=== PATIENT | male | born 1980 | race Caucasian/White ===

== ENCOUNTER → 2016-06-03 | Outpatient (CLI) | payer BC ==
[2016-06-03 11:08] LABS: Follicle Stimulating Hormone 2.1 mIU/mL (1.6-9.7); Prolactin 21.9 ng/mL (3.7-17.9)
[2016-06-03 11:22] LABS: Prostate Specific Antigen 0.86 ng/mL (0.00-4.00)
== END | disposition home or self-care (01) ==
LOC: LABWHC1 06:59
PROVIDERS: ATTEND Internal Medicine Endocrinology, Diabetes & Metabolism
DX: E78.2 Mixed hyperlipidemia (principal); E29.1 Testicular hypofunction
CPT/HCPCS: 36415; 80061; 82533; 83001; 83002; 84146; 84153; 84270; 84402; 84403; 84439; 84443

== ENCOUNTER 2017-08-20 16:05 | Emergency (ER) | payer BC ==
[2017-08-20 16:39] VITALS: RESP 18
--- NOTE | 2017-08-20 17:08 | ED ---
General Adult HPI - General Chief complaint: Urogenital Stated complaint: hernia Time Seen by Provider: 08/20/17 16:35 Source: patient, RN notes reviewed Mode of arrival: ambulatory Limitations: no limitations - History of Present Illness Initial comments: This is a 36 her old male presents emergency Department complaining that he has a lump in his right groin which started on Thursday. 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 Patient states she's never had this before. Patient states he is mildly tender. Patient went to an urgent care the urgent care sent him here because they believe it to be a hernia. Patient denies any abdominal pain patient denies nausea vomiting diarrhea. Patient denies any dysuria hematuria urinary frequency. Patient denies any back pain. Patient denies any trauma or injury. Patient denies any redness or swelling. there is no pain swelling and redness to the scrotum - Related Data Allergies Allergy/AdvReac Type Severity Reaction Status Date / Time No Known Allergies Allergy Verified 08/20/17 16:39 Review of Systems ROS Statement: Those systems with pertinent positive or pertinent negative responses have been documented in the HPI. ROS Other: All systems not noted in ROS Statement are negative. Past Medical History Past Medical History: No Reported History History of Any Multi-Drug Resistant Organisms: None Reported Past Surgical History: No Surgical Hx Reported Past Psychological History: No Psychological Hx Reported Smoking Status: Never smoker Past Alcohol Use History: Rare Past Drug Use History: None Reported General Exam - General Exam Comments Initial Comments: GENERAL: Patient is well-developed and well-nourished. Patient is nontoxic and well- hydrated and is in mild distress. ENT: Neck is soft and supple. No significant lymphadenopathy is noted. Oropharynx is clear. Moist mucous membranes. EYES: The sclera were anicteric and conjunctiva were pink and moist. Extraocular movements were intact and pupils were equal round and reactive to light. Eyelids were unremarkable. PULMONARY: Unlabored respirations. Good breath sounds bilaterally. No audible rales rhonchi or wheezing was noted. CARDIOVASCULAR: There is a regular rate and rhythm without any murmurs gallops or rubs. ABDOMEN: Soft and nontender with normal bowel sounds. No palpable organomegaly was noted. There is no palpable pulsatile mass. SKIN: Skin is clear with no lesions or rashes and otherwise unremarkable. GENITALIA Right groin had a small mobile mass that appeared to be reducible and would come back if the patient coughed or had any increased intra-abdominal pressure. The area was slightly tender. NEUROLOGIC: Patient is alert and oriented x3. Cranial nerves II through XII are grossly intact. Motor and sensory are also intact. Normal speech, volume and content. Symmetrical smile. MUSCULOSKELETAL: Normal extremities with adequate strength and full range of motion. No lower extremity swelling or edema. No calf tenderness. LYMPHATICS: No significant lymphadenopathy is noted PSYCHIATRIC: Normal psychiatric evaluation. Limitations: no limitations Course Vital Signs 08/20/17 16:37 Temperature 98.6 F Pulse Rate 100 Respiratory 18 Rate Blood Pressure 128/75 O2 Sat by Pulse 100 Oximetry Medical Decision Making - Medical Decision Making Ultrasound showed a cyst in the right groin. I spoke with Dr. Collazo and he wanted the patient to follow-up with the surgeon. Patient is aware that if the area gets more tender swollen to come to the emergency department immediately - Lab Data Lab Results 08/20/17 Range/Units 17:20 Urine Color Light Yellow Urine Appearance Clear (Clear) Urine pH 5.0 (5.0-8.0) Ur Specific [place] 1.007 (1.001-1.035) Urine Protein Negative (Negative) Urine Glucose (UA) Negative (Negative) Urine Ketones Negative (Negative) Urine Blood Negative (Negative) Urine Nitrite Negative (Negative) Urine Bilirubin Negative (Negative) Urine Urobilinogen <2.0 (<2.0) mg/dL Ur Leukocyte Esterase Negative (Negative) Disposition Clinical Impression: Inguinal cyst Disposition: HOME SELF-CARE Condition: Good Instructions: Cyst (ED) Is patient prescribed a controlled substance at d/c from ED?: No Referrals: Heladio Rice DO [Primary Care Provider] - 1-2 days Alon Sexton MD [STAFF PHYSICIAN] - 1-2 days Time of Disposition: 18:00
[2017-08-20 17:34] LABS: Appearance,Urine Clear (Clear); Bilirubin,Urine Negative (Negative); Blood,Urine Negative (Negative); Color,Urine Light Yellow; Glucose,Urine (UA) Negative (Negative); Ketones,Urine Negative (Negative); Leukocyte Esterase,Urine Negative (Negative); Nitrite,Urine Negative (Negative); Protein,Urine Negative (Negative); Specific Gravity,Urine 1.007 (1.001-1.035); Urobilinogen,Urine <2.0 mg/dL (<2.0)
--- NOTE | 2017-08-20 17:49 | US ---
EXAMINATION TYPE: US groin RT DATE OF EXAM: 08/20/2017 COMPARISON: NONE CLINICAL HISTORY: Pain. Rt groin lump FINDINGS: There is a subcutaneous well-marginated anechoic 4.7 x 3.3 x 1.5 cm lesion corresponding to the palpable right groin lump. This lesion demonstrates posterior wall enhancement and through sound transmission, consistent with f ocal fluid collection. Color Doppler imaging does not show hyperperfusion to the wall of this fluid collection. IMPRESSION: SIMPLE-APPEARING FLUID COLLECTION.
[2017-08-20 19:14] VITALS: BP 134/87; PULSE 87; TEMP 97.2
== END 2017-08-20 19:14 | disposition home or self-care (01) ==
LOC: EC 16:05
DX: L72.9 Follicular cyst of the skin and subcutaneous tissue, unspecified (principal)
CPT/HCPCS: 81003; 99284

== ENCOUNTER → 2017-09-07 | Outpatient (CLI) | payer BC ==
--- NOTE | 2017-09-07 22:27 | CT ---
EXAMINATION TYPE: CT pelvis w con DATE OF EXAM: 09/07/2017 COMPARISON: Right groin ultrasound August 20, 2017 HISTORY: RLQ lump x2 weeks CT DLP: 743 mGycm Automated exposure control for dose reduction was used. CONTRAST: Performed with oral and with IV Contrast, patient injected with 100 mL of Isovue 300. FINDINGS: At area of ultrasound abnormality previously visualized thin walled fluid collection right groin gurdeep on is not clearly seen on CT. There are slightly prominent but subcentimeter bilateral groin lymph no chi. No bowel or fat containing hernia is present. Visualized portion of pelvis shows oral contrast nondistended small bowel loops anteriorly. Fluid is seen in nondistended distal small bowel loops in the pelvis. Fecal material is seen in nondistended c olon. Urinary bladder and prostate gland are within normal limits. No pelvic fluid collection is seen . No suspicious pelvic adenopathy is noted. Visualized osseous structures are intact. IMPRESSION: INTERVAL RESOLUTION OF RIGHT GROIN THIN-WALLED FLUID COLLECTION. NO SUSPICIOUS MASS OR FLUID COLLECTI ON ON CURRENT STUDY.
== END | disposition home or self-care (01) ==
LOC: RADCTMAIN 18:06
PROVIDERS: ATTEND Surgery
DX: K40.90 Unilateral inguinal hernia, without obstruction or gangrene, not specified as recurrent (principal)
CPT/HCPCS: 72193; Q9967